=== PATIENT | male | born 1975 | race Hispanic/Latino ===

== ENCOUNTER 2019-12-21 13:02 | Emergency (ER) | payer BC ==
[~2019-12-21] VITALS: Ht 172.7 cm; Wt 106.6 kg
[2019-12-21 13:49] LABS: BASOPHILS % 0.5 % (0.0-1.0); EOSINOPHILS # (AUTO) 0.1 (0.0-0.4); EOSINOPHILS % 1.4 % (0.0-6.0); HEMATOCRIT 45.1 % (38.2-49.6); HEMOGLOBIN 15.2 g/dL (14.0-18.0); LYMPHOCYTES # (AUTO) 1.3 (1.0-3.2); LYMPHOCYTES % 20.5 % (18.0-39.1); MEAN CORPUSCULAR HEMOGLOBIN 28.9 pg (28-32); MEAN CORPUSCULAR HGB CONC 33.7 g/dL (31-35); MEAN CORPUSCULAR VOLUME 85.7 fL (81-99); MONOCYTES # (AUTO) 0.5 (0.2-0.8); MONOCYTES % 7.2 % (4.4-11.3); NEUTROPHILS # (AUTO) 4.4 (2.1-6.9); NEUTROPHILS % 69.9 % (38.7-80.0); PLATELET COUNT 181 x10e3/uL (140-360); RED BLOOD COUNT 5.26 x10e6/uL (4.3-5.7); RED CELL DISTRIBUTION WIDTH 13.1 % (11.7-14.4)
--- NOTE | 2019-12-21 14:06 | Emergency Department Note ---
History of Present Illnes History of Present Illness Chief Complaint: General Medicine Complaints History of Present Illness This is a 44 year old male arrives the ED with complaints of feeling confused and unable to concentrate. Patient also complaining of the right-sided weakness that has been present on and off for several weeks patient's primary care doctor's office and felt like he didn't clear expedition for symptoms and decided to come to the ER.. Chief Complaint Comment Patient in from home with complaints of abnormal weakness and fatigue over the last 2 weeks. Patient reports that he went to his PCP this morning for the same concern and had blood drawn but decided to come to the ER for a workup as well. Patient reports feeling forgetful at work and frequently loses track of what he is doing. VSS in triage. No acute distress noted. Patient reports that he has a history of anxiety and depression but stopped taking medications for that over 2 years ago. Historian: Patient Arrival Mode: Car Onset (how long ago): week(s) Severity: mild Onset quality: gradual Duration (how long): week(s) Progression: unchanged Chronicity: recurrent Relieving factors: none Exacerbating factors: none Past Medical/Family History Physician Review I have reviewed the patient's past medical and family history. Any updates have been documented here. Past Medical History Recent Fever: No Clinical Suspicion of Infectio: No New/Unexplained Change in Ment: No Past Medical History: GERD Past Surgical History: None Review of Systems Review of Systems Constitutional: Reports no symptoms EENTM: Reports no symptoms Cardiovascular: Reports no symptoms Respiratory: Reports no symptoms Gastrointestinal: Reports no symptoms Genitourinary: Reports no symptoms Musculoskeletal: Reports no symptoms Integumentary: Reports no symptoms Neurological: Reports as per HPI Psychological: Reports no symptoms Endocrine: Reports no symptoms Hematological/Lymphatic: Reports no symptoms Physical Exam Related Data Allergies: Coded Allergies: No Known Allergies (Unverified , 12/21/19) Triage Vital Signs Vital Signs Date Time Temp Pulse Resp B/P (MAP) Pulse Ox O2 Delivery O2 Flow Rate FiO2 12/21/19 13:17 98.3 91 16 133/90 100 Room Air Vital signs reviewed: Yes Physical Exam CONSTITUTIONAL Constitutional: Present well-developed, Present well-nourished HENT HENT: Present normocephalic, Present atraumatic, Present oropharynx clear/moist, Present nose normal HENT L/R: Present left ext ear normal, Present right ext ear normal EYES Eyes: Reports PERRL, Reports conjunctivae normal NECK Neck: Present ROM normal PULMONARY Pulmonary: Present effort normal, Present breath sounds normal CARDIOVASCULAR Cardiovascular: Present regular rhythm, Present heart sounds normal, Present capillary refill normal, Present normal rate GASTROINTESTINAL Abdominal: Present soft, Present nontender, Present bowel sounds normal GENITOURINARY Genitourinary: Present exam deferred SKIN Skin: Present warm, Present dry MUSCULOSKELETAL Musculoskeletal: Present ROM normal NEUROLOGICAL Neurological: Present alert, Present oriented x 3, Present no gross motor or sensory deficits PSYCHOLOGICAL Psychological: Present mood/affect normal, Present judgement normal Results Laboratory Laboratory Laboratory Tests Test 12/21/19 13:36 Lab results reviewed: Yes Laboratory comments Laboratory Tests Test 12/21/19 13:36 White Blood Count 6.29 x10e3/uL (4.8-10.8) Red Blood Count 5.26 x10e6/uL (4.3-5.7) Hemoglobin 15.2 g/dL (14.0-18.0) Hematocrit 45.1 % (38.2-49.6) Mean Corpuscular Volume 85.7 fL (81-99) Mean Corpuscular Hemoglobin 28.9 pg (28-32) Mean Corpuscular Hemoglobin Concent 33.7 g/dL (31-35) Red Cell Distribution Width 13.1 % (11.7-14.4) Platelet Count 181 x10e3/uL (140-360) Neutrophils (%) (Auto) 69.9 % (38.7-80.0) Lymphocytes (%) (Auto) 20.5 % (18.0-39.1) Monocytes (%) (Auto) 7.2 % (4.4-11.3) Eosinophils (%) (Auto) 1.4 % (0.0-6.0) Basophils (%) (Auto) 0.5 % (0.0-1.0) Neutrophils # (Auto) 4.4 (2.1-6.9) Lymphocytes # (Auto) 1.3 (1.0-3.2) Monocytes # (Auto) 0.5 (0.2-0.8) Eosinophils # (Auto) 0.1 (0.0-0.4) Basophils # (Auto) 0.0 (0.0-0.1) Absolute Immature Granulocyte (auto 0.03 x10e3/uL (0-0.1) Sodium Level 141 mmol/L (136-145) Potassium Level 3.8 mmol/L (3.5-5.1) Chloride Level 107 mmol/L (98-107) Carbon Dioxide Level 26 mmol/L (22-29) Anion Gap 11.8 mmol/L (8-16) Blood Urea Nitrogen 16 mg/dL (7-26) Creatinine 1.06 mg/dL (0.72-1.25) Estimat Glomerular Filtration Rate > 60 ML/MIN (60-) BUN/Creatinine Ratio 15 (6-25) Glucose Level 107 mg/dL (74-118) Calcium Level 9.3 mg/dL (8.4-10.2) Total Bilirubin 0.7 mg/dL (0.2-1.2) Aspartate Amino Transf (AST/SGOT) 24 IU/L (5-34) Alanine Aminotransferase (ALT/SGPT) 48 IU/L (0-55) Alkaline Phosphatase 99 IU/L (40-150) Creatine Kinase 83 IU/L (30-200) Creatine Kinase MB 0.60 ng/mL (0-5.0) Troponin I 0.003 ng/mL (0-0.300) Total Protein 7.7 g/dL (6.5-8.1) Albumin 4.4 g/dL (3.5-5.0) Globulin 3.3 g/dL (2.3-3.5) Albumin/Globulin Ratio 1.3 (0.8-2.0) Imaging Imaging results reviewed: Yes Impressions IMPRESSION: 1. Minimal bilateral carotid siphon calcified plaque without stenosis. 2. No other intracranial CTA abnormalities. Signed by: Dr. Pranay Blake M.D. on 12/21/2019 3:01 PM Assessment & Plan Medical Decision Making MDM 44-year-old female arrived to the ED with generalized malaise weakness states he feels foggy. Patient also complaining of right-sided weakness. Patient no neuro deficits on exam. CT brain and CTA brain showed no acute abnormalities. No concerns of acute neurological process patient is stable for discharge home. Outpatient neurology follow-up given. Assessment & Plan Final Impression: (1) Weakness Depart Disposition: HOME, SELF-CARE Last Vital Signs Date Time Temp Pulse Resp B/P (MAP) Pulse Ox O2 Delivery O2 Flow Rate FiO2 12/21/19 13:17 98.3 91 16 133/90 100 Room Air TIFFANI PALACIO DO Dec 21, 2019 14:06
[2019-12-21] MEDS ORDERED: SODIUM CHLORIDE 0.9% 100 ML ONE (14:11)
[2019-12-21] MEDS ORDERED: IOPAMIDOL 370 MG/ML 200 ML INFUS..BTL INJ ONE (14:11)
[2019-12-21 14:17] LABS: ALANINE AMINOTRANSFERASE 48 IU/L (0-55); ALBUMIN 4.4 g/dL (3.5-5.0); ALBUMIN/GLOBULIN RATIO 1.3 (0.8-2.0); ALKALINE PHOSPHATASE 99 IU/L (40-150); ANION GAP 11.8 mmol/L (8-16); BLOOD UREA NITROGEN 16 mg/dL (7-26); BUN/CREATININE RATIO 15 (6-25); CALCIUM 9.3 mg/dL (8.4-10.2); CARBON DIOXIDE 26 mmol/L (22-29); CHLORIDE 107 mmol/L (98-107); CREATINE KINASE 83 IU/L (30-200); CREATININE, SERUM 1.06 mg/dL (0.72-1.25); EST GLOMERULAR FILTRATION RATE > 60 ML/MIN (60-); GLUCOSE 107 mg/dL (74-118); POTASSIUM 3.8 mmol/L (3.5-5.1); SODIUM 141 mmol/L (136-145)
--- NOTE | 2019-12-21 14:28 | Diagnostic Imaging Report ---
CT BRAIN WO HISTORY: 44-year-old male with 2 week history of lethargy, and right-sided weakness COMPARISON: None. TECHNIQUE: Noncontrast axial scans were obtained from skull base to the vertex. Coronal and sagittal reconstructions obtained from the axial data. One or more of the following dose reduction techniques were used: Automated exposure control, adjustment of the mA and/or kV according to patient size, and/or utilization of iterative reconstruction technique. DISCUSSION: Scalp/Skull: Unremarkable. Brain sulci: Appropriate for patient's age. Ventricles: Normal in size and configuration. No hydrocephalus. Extra-axial spaces: Approximately 1.3 cm CSF density nodular lesion along the anterior straight sinus may be an arachnoid granulation or arachnoiditis. No additional masses or fluid collections. Parenchyma: No abnormal densities. No mass, hemorrhage, or large vascular territory acute infarct. Dural sinuses: No other abnormal densities. Sellar/Suprasellar region: Intact. Skull base: Intact. Incidental findings: The right petrous apex is pneumatized. Minimal carotid siphon calcifications. IMPRESSION: No acute intracranial abnormalities. Signed by: Dr. Pranay Blake M.D. on 12/21/2019 2:25 PM
--- NOTE | 2019-12-21 15:04 | Diagnostic Imaging Report ---
CTA BRAIN HISTORY: 44-year-old male with two-week history of lethargy and right-sided weakness COMPARISON: Head CT scan 12/21/2019 TECHNIQUE: Intracranial CT angiogram was performed. Coronal , 3-D, and sagittal reformations were created. One or more of the following dose reduction techniques were used: Automated exposure control, adjustment of the mA and/or kV according to patient size, and/or utilization of iterative reconstruction technique. DISCUSSION: Carotid arteries: Minimal carotid siphon calcified plaque, right greater than left, without stenosis. The intracranial internal carotid arteries are otherwise patent and without abnormality. No abnormalities in the A1 or M1 segments. Vertebrobasilar Circulation: Vertebral arteries: Patent, no abnormalities. Basilar artery: Patent, no abnormalities. Posterior cerebral arteries: Patent, no abnormalities. Normal Variants: ACom: Patent Pcoms: Patent on the left. Questionable patency on the right. Vertebral arteries: Left dominant. Dural venous sinuses: Patent. Unchanged small arachnoid cyst versus arachnoid granulation along the anterior straight sinus. IMPRESSION: 1. Minimal bilateral carotid siphon calcified plaque without stenosis. 2. No other intracranial CTA abnormalities. Signed by: Dr. Pranay Blake M.D. on 12/21/2019 3:01 PM
== END 2019-12-21 17:54 | disposition home or self-care (01) ==
LOC: ER 14:31
DX: R53.1 Weakness (principal); K21.9 Gastro-esophageal reflux disease without esophagitis
CPT/HCPCS: 36415; 70450; 70496; 80053; 82550; 82553; 84484; 85025; 99284; J7050; Q9967